=== PATIENT | male | born 1955 | race Caucasian/White ===

== ENCOUNTER 2017-06-05 05:55 | Inpatient (IN) | payer OTHER ==
[~2017-06-05 05:55] MED LIST: Buffered Lidocaine 0.9% SYRIN* 5 ML/SYR SYRINGE INTRADERM ONE; Buffered Lidocaine 0.9% SYRIN* 5 ML/SYR SYRINGE ONE; Famotidine IV* 10 MG/ML 2 ML (20 mg) ONE; Morphine INJ* 2 MG/ML 1 ML SYRINGE IV PRN; PROCHLORPERAZINE INJ 5 MG/ML 2 ML VIAL IV PRN; ceFAZolin 2 GM in 100 MLS NS (*) BAG IVPB ONE; oxyCODONE/Acetamin 5/325 MG* TAB PO PRN
[2017-06-05] MEDS ORDERED: Famotidine IV* 10 MG/ML 2 ML (20 mg) IV ONE (06:00)
[2017-06-05] MEDS ORDERED: Bacitracin IV* 50,000 UNITS INJ ONE (07:04)
[2017-06-05] MEDS ORDERED: Midazolam* 1 MG/ML 5 ML VIAL (5 MG) ONE (07:04)
[2017-06-05] MEDS ORDERED: KETAMINE HCL* 50 MG/ML 10 ML VIAL ONE (07:04)
[2017-06-05] MEDS ORDERED: Thrombin 5,000 UNITS* 1 APPLIC KIT - topical use - TOPICAL ONE (07:04)
[2017-06-05] MEDS ORDERED: fentaNYL* 50 MCG/ML 5 ML VIAL (250 MCG VIAL) ONE (07:04)
[2017-06-05] MEDS ORDERED: Atracurium* 10 MG/ML 10 ML VIAL ONE (07:04)
[2017-06-05] MEDS ORDERED: Lidocaine 1.5% EPI 1:200,000* 30 ML SDV ONE (07:04)
[2017-06-05] MEDS ORDERED: fentaNYL* 50 MCG/ML 2 ML VIAL (100 MCG VIAL) ONE ×2 (10:01→11:01)
[2017-06-05] MEDS: fentaNYL* 50 MCG/ML 2 ML VIAL (100 MCG VIAL) IV PRN ×5 (10:02→11:02)
[2017-06-05] MEDS ORDERED: Ondansetron INJ* 2 MG/ML VIAL IV PRN (10:02)
[2017-06-05] MEDS ORDERED: Acetaminophen TAB* 325 MG PO PRN (10:02)
[2017-06-05] MEDS ORDERED: Docusate CAP* 100 MG PO PRN (10:02)
[2017-06-05] MEDS ORDERED: EPHEDrine (Pressors)* 50 MG/ML VIAL ONE (10:05)
[2017-06-05] MEDS ORDERED: Succinylcholine* 20 MG/ML 10 ML VIAL ONE (10:05)
[2017-06-05] MEDS ORDERED: Propofol* 10 MG/ML 20 ML BTL IV PUSH ONE (10:05)
[2017-06-05] MEDS ORDERED: Ondansetron INJ* 2 MG/ML VIAL ONE (10:05)
[2017-06-05] MEDS ORDERED: Metoprolol Tartrate IV* 1 MG/ML 5 ML VIAL ONE (10:05)
[2017-06-05] MEDS ORDERED: Lidocaine 2% PF * 5 ML VIAL ONE (10:05)
[2017-06-05] MEDS ORDERED: Neostigmine Methylsulfate* 2 MG/2 ML SYRINGE ONE (10:05)
[2017-06-05] MEDS ORDERED: Phenylephrine INJ* 10 MG/ML 1 ML VIAL (10 MG) ONE (10:05)
[2017-06-05] MEDS ORDERED: Glycopyrrolate IV* 0.2 MG/ML 1 ML VIAL ONE (10:05)
[2017-06-05] MEDS ORDERED: PROCHLORPERAZINE INJ 5 MG/ML 2 ML VIAL ONE (10:05)
[2017-06-05] MEDS ORDERED: HYDROcodone/ACETAMIN 5-325 MG* 1 TAB ONE (10:10)
[2017-06-05] MEDS: HYDROcodone/ACETAMIN 5-325 MG* 1 TAB PO PRN ×3 (10:13→20:55)
[2017-06-05] MEDS ORDERED: Morphine INJ* 4 MG/ML 1 ML SYRINGE IV PRN (10:18)
[2017-06-05] MEDS ORDERED: Dextrose 50% Syringe 50 ML* 25 GM/50 ML SYRINGE IV PUSH PRN (11:05)
[2017-06-05] MEDS: Insulin LISPRO* 1 UNITS UNIT SUBCUT SCH ×3 (13:35→21:01)
[2017-06-05] MEDS: Pregabalin CAP(*) 100 MG PO SCH ×2 (15:10→20:54)
--- NOTE | 2017-06-05 15:59 | CONS ---
CONSULTATION REPORT: DATE OF CONSULT: 06/05/17. PRIMARY CARE PROVIDER: Dr. Klein. HEALTH CARE PROXY: His . CODE STATUS: Full. SERVICE REQUESTING CONSULTATION: Neurosurgery. REASON FOR CONSULTATION: Medical comanagement. SOURCE OF INFORMATION: History obtained, review of past medical records, and discussion with the patient. RELIABILITY: Good. HISTORY OF PRESENT ILLNESS: This is a 62-year-old male with past medical history of hypertension, hyperlipidemia, diabetes, obstructive sleep apnea, currently noncompliant with his CPAP, status post posterior cervical decompression C3 through C7 for spondylosis with myelopathy without complications. Patient was seen in the PACU, was awake and interactive; however , notes he feels like, "I am on joe," with 5/10 neck pain that he reports is controlled. He is generally in good health, however has had increasing bilateral arm and leg numbness for which he opted to proceed with surgery with Dr. Moore today. He does note that the right hand numbness seems immediately improved status post procedure. No other complaints including absence of chest pain, shortness of breath, nausea, vomiting, lightheadedness, or other pain than at the surgical site. PAST MEDICAL HISTORY: Includes: 1. Hyperlipidemia. 2. Type 2 diabetes. 3. Hypertension. 4. GERD. 5. Carpal tunnel syndrome. 6. Prostate cancer, status post radiation in 2012. 7. Peripheral neuropathy. 8. CAD, status post [place] in 1992, and again in 2003, status post 3 stents placed at [facility]. 9. Obstructive sleep apnea, intermittently using CPAP, reported carotid occlusion per chart review, although not confirmed by patient. MEDICATIONS: 1. Lopid 600 mg daily. 2. Lasix 20 mg daily. 3. Clopidogrel 75 mg daily. 4. Lyrica 100 mg 3 times daily. 5. Metoprolol succinate 100 mg daily. 6. Metformin 1000 mg twice daily. 7. Mesalamine 1.2 g daily. 8. Glipizide XL 5 mg daily. 9. Diovan 160/12.5 mg daily. 10. Januvia 100 mg daily. 11. Crestor 20 mg in the evening. 12. Bydureon 2 mg subcutaneously weekly, last administered yesterday. 13. Aspirin 81 mg daily. ALLERGIES: No known drug allergies. FAMILY HISTORY: Significant for father with diabetes and CAD at age 42. Mother with type 2 diabetes. SOCIAL HISTORY: Minimal tobacco in form of cigars, keeps "flies away," _while__ ___ fishing, actively employed. Minimal alcohol. REVIEW OF SYSTEMS: As per HPI, otherwise all other systems negative. PHYSICAL EXAM: Vitals in the PACU, 135/77, heart rate 84, T-max 97.7 postop, 96 % on 2 L nasal cannula. General: Obese, sitting up in bed, interactive, pleasant, in no apparent distress. HEENT: Oropharynx is clear. Moist mucous membranes. Sclerae anicteric. He has no elevated JVD and no carotid bruits. Cardiac: Regular rate and rhythm. No murmurs, rubs or gallops. Lungs: Clear to auscultation anteriorly. He has a drain in the cervical region, draining serosanguineous fluid. Abdomen: Soft, nontender, nondistended. Extremities: Warm and well perfused. He has trace lower extremity edema. He is alert and oriented x3. He notes mild peripheral numbness in his bilateral lower extremities, greatest at the feet. No anxiety, agitation or depression. LABORATORY DATA: Labs to review point of care glucose 143. ASSESSMENT AND PLAN: This is a 62-year-old man postop day 0, posterior cervical decompression. 1. Posterior cervical decompression, continue care per primary or surgical team. 2. Type 2 diabetes. Patient received Bydureon yesterday, next due next Sunday. As I am holding metformin, so repeat creatinine check tomorrow. Additionally holding long-acting glipizide and Januvia. Starting on high dose insulin sliding scale at Lispro with a.c. and h.s. Finger sticks, recommend restarting metformin at home dose tomorrow, if no change in kidney function. Recommend against sulfonylurea in the setting of insulin administration as well. Plan on discharging on home regimen if no changes to kidney function. 3. Hypertension. Continue metoprolol, hold Diovan, if blood pressure is elevated tomorrow, restart. Additionally he can restart this evening if blood pressure is elevated. 4. Obstructive sleep apnea, CPAP at home has been intermittently compliant, discussed at length with patient and he is willing to try this evening, ordered CPAP with hospital equipment. 5. History of CAD, continue aspirin, metoprolol as well as therapeutic interchange from Crestor to atorvastatin. 6. Diet, low sodium and diabetic. 7. DVT prophylaxis, SCDs per nurse and neurosurgical team. We will continue to follow. Thank you for this consultation. Please contact with additional questions or concerns. [id number]/[place] #: [id number] MAURO
[2017-06-05] MEDS: Atorvastatin* 40 MG TAB PO SCH (17:29)
[2017-06-05] MEDS: Metoprolol Succinate XL TAB* 100 MG PO SCH (20:54)
[2017-06-06] MEDS: HYDROcodone/ACETAMIN 5-325 MG* 1 TAB PO PRN ×6 (01:05→23:09)
[2017-06-06 05:37] LABS: BUN/Creatinine Ratio 12.9 (8-20); Calcium 9.2 mg/dL (8.6-10.3); EGFR Non-African American 114.3 (>60); Potassium 3.7 mmol/L (3.5-5.0)
[2017-06-06] MEDS: Pregabalin CAP(*) 100 MG PO SCH ×3 (08:22→20:59)
[2017-06-06] MEDS: Gemfibrozil TAB* 600 MG PO SCH (08:23)
[2017-06-06] MEDS: Furosemide TAB* 20 MG PO SCH (08:23)
[2017-06-06] MEDS: Insulin LISPRO* 1 UNITS UNIT SUBCUT SCH ×4 (08:57→20:59)
[2017-06-06] MEDS ORDERED: glipiZIDE TAB.XL* 5 MG PO SCH (09:00)
[2017-06-06] MEDS ORDERED: Aspirin EC Low Dose* 81 MG TAB.EC PO SCH ×2 (09:00→18:00)
[2017-06-06] MEDS ORDERED: Famotidine TAB* 20 MG PO SCH (10:00)
[2017-06-06] MEDS: Famotidine TAB* 20 MG PO SCH ×2 (10:07→20:59)
[2017-06-06] MEDS: metFORMIN* 1,000 MG TAB PO SCH ×2 (10:07→20:59)
--- NOTE | 2017-06-06 14:53 | PN ---
Subjective Date of Service: 06/06/17 Interval History: HOSPITALIST PROGRESS NOTE Patient seen and examined at bedside. He feels well today. Pain is controlled, still has some tingling sensation on his fingertips. Requesting to have CPAP tonight. States he "learned his lesson" as he refused CPAP last night and the hypoxia alarm woke him up multiple times during the night and he's now aware of how many hypoxic episodes he has. Plans to start using his own CPAP at home when discharged. Family History: Unchanged from Admission Social History: Unchanged from Admission Past Medical History: Unchanged from Admission Objective Active Medications: Acetaminophen (Tylenol Tab*) 650 mg PO Q4H PRN PRN Reason: Pain Or Temperature >101 F Hydrocodone Bitart/Acetaminophen ([place] 5-325 Tab*) 2 tab PO Q4H PRN PRN Reason: PAIN - MODERATE Last Admin: 06/06/17 14:35 Dose: 2 tab Aspirin (Aspirin Ec Low Dose*) 81 mg PO QPM COUNTS INCLUDE 234 BEDS AT THE [facility] Atorvastatin Calcium (Lipitor*) 40 mg PO QPM COUNTS INCLUDE 234 BEDS AT THE [facility] Last Admin: 06/05/17 17:29 Dose: 40 mg Dextrose (D50w Syringe 50 Ml*) 12.5 gm IV PUSH .FOR FS < 60 - SS PRN PRN Reason: FS < 60 Docusate Sodium (Colace Cap*) 100 mg PO BID PRN PRN Reason: CONSTIPATION Famotidine (Pepcid Tab*) 20 mg PO BID COUNTS INCLUDE 234 BEDS AT THE [facility] Last Admin: 06/06/17 10:07 Dose: 20 mg Furosemide (Lasix Tab*) 20 mg PO DAILY COUNTS INCLUDE 234 BEDS AT THE [facility] Last Admin: 06/06/17 08:23 Dose: 20 mg Gemfibrozil (Lopid Tab*) 600 mg PO DAILY COUNTS INCLUDE 234 BEDS AT THE [facility] Last Admin: 06/06/17 08:23 Dose: 600 mg Lactated Ringer's (Lactated Ringers 1000 Ml Bag*) 1,000 mls @ 75 mls/hr IV .per rate COUNTS INCLUDE 234 BEDS AT THE [facility] Last Admin: 06/05/17 12:39 Dose: 75 mls/hr Insulin Human Lispro (Humalog*) 0 units SUBCUT ACHS COUNTS INCLUDE 234 BEDS AT THE [facility] PRN Reason: Protocol Last Admin: 06/06/17 12:50 Dose: 2 units Metformin HCl (Glucophage*) 1,000 mg PO BID COUNTS INCLUDE 234 BEDS AT THE [facility] Last Admin: 06/06/17 10:07 Dose: 1,000 mg Metoprolol Succinate (Toprol Xl Tab*) 100 mg PO 2100 COUNTS INCLUDE 234 BEDS AT THE [facility] Last Admin: 06/05/17 20:54 Dose: 100 mg Morphine Sulfate (Morphine Inj (Syringe)*) 4 mg IV Q4H PRN PRN Reason: PAIN Ondansetron HCl (Zofran Inj*) 4 mg IV Q4H PRN PRN Reason: NAUSEA/VOMITING Last Admin: 06/05/17 13:06 Dose: 4 mg Pregabalin (Lyrica Cap(*)) 100 mg PO TID COUNTS INCLUDE 234 BEDS AT THE [facility] Last Admin: 06/06/17 14:36 Dose: 100 mg Tamsulosin HCl (Flomax Cap*) 0.4 mg PO BEDTIME COUNTS INCLUDE 234 BEDS AT THE [facility] Vital Signs 06/06/17 06/06/17 06/06/17 10:22 10:28 11:16 Temperature 98.3 F Pulse Rate 88 Respiratory 18 18 16 Rate Blood Pressure 124/64 (mmHg) O2 Sat by Pulse 96 Oximetry Oxygen Devices in Use Now: None Appearance: Pleasant obese gentleman sitting up in bed in [facility]. Eyes: No Scleral Icterus Ears/Nose/Mouth/Throat: Mucous Membranes Moist Neck: Trachea Midline Respiratory: Symmetrical Chest Expansion and Respiratory Effort, Clear to Auscultation Cardiovascular: RRR - Normal S1 and S2 Abdominal: NL Sounds; No Tenderness; No Distention Neurological: Alert and Oriented x 3, NL Muscle Strength and Tone Lines/Tubes/Other Access: Clean, Dry and Intact Peripheral IV Nutrition: Taking PO's Result Diagrams: 06/06/17 04:45 Assess/Plan/Problems-Billing Assessment: Mr. Henning is a 62 yo M with HLD, type 2 DM, HTN, GERD, ENID, CAD, admitted for elective posterior cervical decompression C3-C7. Hospitalist service consulted for management of comorbidities. - Patient Problems (1) H/O excision of lamina of cervical vertebra for decompression of spinal cord Comment: - Management as per Neurosurgery. (2) Type 2 diabetes mellitus Comment: - Controlled. - Continue Lispro SS and add Metformin. - Januvia and Glipizide still on hold. (3) HTN (hypertension) Comment: - Controlled. - Continue Metoprolol. - ARB and HCTZ on hold for now - will resume when BP trends up. (4) ENID (obstructive sleep apnea) Comment: - Patient requests to have CPAP on tonight and is planning to use his own when he returns home. (5) CAD (coronary artery disease) Comment: - Stable. - Continue Aspirin, Metoprolol, and statin. - Clopidogrel on hold - resume when cleared by Neurosurgery. (6) DVT prophylaxis Comment: - SCDs as per Neurosurgery. (7) Full code status Status and Disposition: Hospitalist service will continue to follow.
[2017-06-06] MEDS: Atorvastatin* 40 MG TAB PO SCH (17:31)
[2017-06-06] MEDS: Metoprolol Succinate XL TAB* 100 MG PO SCH (20:59)
[2017-06-06] MEDS ORDERED: Tamsulosin CAP* 0.4 MG PO SCH (21:00)
[2017-06-07] MEDS: HYDROcodone/ACETAMIN 5-325 MG* 1 TAB PO PRN ×2 (06:53→10:53)
[2017-06-07] MEDS: Pregabalin CAP(*) 100 MG PO SCH ×2 (09:09→14:15)
[2017-06-07] MEDS: metFORMIN* 1,000 MG TAB PO SCH (09:09)
[2017-06-07] MEDS: Gemfibrozil TAB* 600 MG PO SCH (09:09)
[2017-06-07] MEDS: Famotidine TAB* 20 MG PO SCH (09:09)
[2017-06-07] MEDS: Furosemide TAB* 20 MG PO SCH (09:10)
[2017-06-07] MEDS: Insulin LISPRO* 1 UNITS UNIT SUBCUT SCH ×2 (09:10→12:31)
--- NOTE | 2017-06-07 09:48 | PN ---
Subjective Date of Service: 06/07/17 Interval History: HOSPITALIST PROGRESS NOTE Patient seen and examined at bedside. He offers no new complaints today. Feels sore, but denies severe pain. Slept better with CPAP. Family History: Unchanged from Admission Social History: Unchanged from Admission Past Medical History: Unchanged from Admission Objective Active Medications: Acetaminophen (Tylenol Tab*) 650 mg PO Q4H PRN PRN Reason: Pain Or Temperature >101 F Hydrocodone Bitart/Acetaminophen ([place] 5-325 Tab*) 2 tab PO Q4H PRN PRN Reason: PAIN - MODERATE Last Admin: 06/07/17 06:53 Dose: 2 tab Aspirin (Aspirin Ec Low Dose*) 81 mg PO QPM [facility] Last Admin: 06/06/17 17:31 Dose: 81 mg Atorvastatin Calcium (Lipitor*) 40 mg PO QPM [facility] Last Admin: 06/06/17 17:31 Dose: 40 mg Dextrose (D50w Syringe 50 Ml*) 12.5 gm IV PUSH .FOR FS < 60 - SS PRN PRN Reason: FS < 60 Docusate Sodium (Colace Cap*) 100 mg PO BID PRN PRN Reason: CONSTIPATION Last Admin: 06/07/17 09:09 Dose: 100 mg Famotidine (Pepcid Tab*) 20 mg PO BID [facility] Last Admin: 06/07/17 09:09 Dose: 20 mg Furosemide (Lasix Tab*) 20 mg PO DAILY [facility] Last Admin: 06/07/17 09:10 Dose: 20 mg Gemfibrozil (Lopid Tab*) 600 mg PO DAILY [facility] Last Admin: 06/07/17 09:09 Dose: 600 mg Lactated Ringer's (Lactated Ringers 1000 Ml Bag*) 1,000 mls @ 75 mls/hr IV .per rate [facility] Last Admin: 06/05/17 12:39 Dose: 75 mls/hr Insulin Human Lispro (Humalog*) 0 units SUBCUT ACHS [facility] PRN Reason: Protocol Last Admin: 06/07/17 09:10 Dose: 3 units Metformin HCl (Glucophage*) 1,000 mg PO BID [facility] Last Admin: 06/07/17 09:09 Dose: 1,000 mg Metoprolol Succinate (Toprol Xl Tab*) 100 mg PO 2100 [facility] Last Admin: 06/06/17 20:59 Dose: 100 mg Morphine Sulfate (Morphine Inj (Syringe)*) 4 mg IV Q4H PRN PRN Reason: PAIN Ondansetron HCl (Zofran Inj*) 4 mg IV Q4H PRN PRN Reason: NAUSEA/VOMITING Last Admin: 06/05/17 13:06 Dose: 4 mg Pregabalin (Lyrica Cap(*)) 100 mg PO TID [facility] Last Admin: 06/07/17 09:09 Dose: 100 mg Tamsulosin HCl (Flomax Cap*) 0.4 mg PO BEDTIME [facility] Last Admin: 06/06/17 20:59 Dose: 0.4 mg Vital Signs 06/07/17 06/07/17 06/07/17 06:53 07:31 08:00 Temperature 97.9 F Pulse Rate 88 Respiratory 18 11 18 Rate Blood Pressure 131/65 (mmHg) O2 Sat by Pulse 100 100 Oximetry Oxygen Devices in Use Now: None Appearance: Pleasant gentleman sitting up in bed in [facility]. Eyes: No Scleral Icterus Ears/Nose/Mouth/Throat: Mucous Membranes Moist Neck: Trachea Midline Respiratory: Symmetrical Chest Expansion and Respiratory Effort, Clear to Auscultation Cardiovascular: RRR - Normal S1 and S2 Neurological: Alert and Oriented x 3, NL Muscle Strength and Tone Lines/Tubes/Other Access: Clean, Dry and Intact Peripheral IV Nutrition: Taking PO's Result Diagrams: 06/06/17 04:45 Assess/Plan/Problems-Billing Assessment: Mr. Henning is a 62 yo M with HLD, type 2 DM, HTN, GERD, ENID, CAD, admitted for elective posterior cervical decompression C3-C7. Hospitalist service consulted for management of comorbidities. - Patient Problems (1) H/O excision of lamina of cervical vertebra for decompression of spinal cord Comment: - Management as per Neurosurgery. (2) Type 2 diabetes mellitus Comment: - Controlled. - Continue Lispro SS and Metformin. - Resume Januvia and Glipizide on discharge. (3) HTN (hypertension) Comment: - Trending up. - Continue Metoprolol and resume Valsartan/HCTZ. (4) ENID (obstructive sleep apnea) Comment: - Advised to f/u with his Tourist Agent in [place] to review his CPAP settings as outpatient. (5) CAD (coronary artery disease) Comment: - Stable. - Continue Aspirin, Metoprolol, and statin. - Resume Clopidogrel when cleared by Neurosurgery. (6) DVT prophylaxis Comment: - SCDs as per Neurosurgery. (7) Full code status Status and Disposition: Hospitalist service will sign off. Please don't hesitate to call with questions.
[2017-06-07 11:48] VITALS: BP 138/66
--- NOTE | 2017-06-07 13:22 | PN ---
Progress Note - Progress Note Date of Service: 06/07/17 SOAP: Subjective: [This is a 62 year old male s/p posterior cervical decompression C3-7, POD #2. He complains of posterior neck soreness and pain at the incision site. Pre- operative upper extremity symptoms are improving; mild tingling in bilateral hands persists. He is ambulating independently. He is not having difficulty eating. Denies headache. Pain is controlled with oral pain medication. ] Objective: [ Vital Signs: Temp Pulse Resp BP Pulse Ox 97.5 F 87 18 138/66 100 06/07/17 11:22 06/07/17 11:22 06/07/17 12:35 06/07/17 11:22 06/07/17 11:22 General: Alert and oriented. Sitting on bedside eating lunch. No distress. Neuro: Motor and sensory intact. Incision: Incision to posterior neck is intact with kaylene. No swelling or infection. KYLE drain removed today without complication. Dressing replaced. Extremities: Full ROM. Wound drain output 06/05/17 06/05/17 06/05/17 11:15 14:00 16:31 Output, KYLE #1 50 40 30 06/05/17 06/06/17 06/06/17 19:46 03:32 14:00 Output, KYLE #1 25 40 20 06/07/17 06/07/17 05:37 09:41 Output, KYLE #1 20 13 ] Assessment: [Satisfactory post-op course. Pain is well controlled with PO pain medications. ] Plan: [1 Discharge home today, 2. Discharge instructions were discussed with the patient. 3. Restart plavix on 06/10/17.]
[2017-06-07] MEDS ORDERED: Valsartan TAB* 160 MG PO SCH (18:00)
[2017-06-07] MEDS ORDERED: Hydrochlorothiazide TAB* 25 MG PO SCH (18:00)
--- NOTE | 2017-06-09 02:34 | DS ---
DISCHARGE SUMMARY: DATE OF ADMISSION: 06/05/17 DATE OF DISCHARGE: 06/07/17 ATTENDING PHYSICIAN: Dr. Moore * (DICTATED BY JESSICA MCDANIEL) DISCHARGE DIAGNOSES: 1. Cervical spondylosis with myelopathy. 2. Diabetes. 3. Hyperlipidemia. 4. Hypertension. 5. Coronary artery disease. 6. Obstructive sleep apnea. SPECIAL PROCEDURE: Posterior cervical decompression C3 through C7. HOSPITAL COURSE: This 62-year-old male was seen in office with cervical myelopathy consistent with MRI findings of cervical spondylosis. He had failed to improve over several months of conservative treatment and was admitted at this time for elective surgery. On the day of admission, he was taken to surgery where under general anesthesia, a posterior cervical decompression at C3 through C7 operation was carried out. Postoperatively, he was feeling well. Hospital Medicine was consulted for comanagement of medical conditions. On the second postoperative day, the KYLE wound drain was discontinued and the patient was discharged home to the care of his family. At this time, he is ambulating independently. He is eating, drinking, and voiding without difficulty. He complained of posterior neck soreness and moderate pain that was well controlled with oral pain medications. DISCHARGE INSTRUCTIONS: Activity level and wound care were discussed with the patient and information was provided. FOLLOWUP: He will be seen in approximately 2 weeks for followup and staple removal. DISCHARGE MEDICATIONS: [place] 5/325 mg 2 tabs by mouth every 4 hours as needed for pain. JESSICA MCDANIEL [id number]/[facility] #: [id number] [facility] CENTERFrancesca
--- NOTE | 2017-06-10 02:21 | OP ---
OPERATIVE REPORT: DATE OF OPERATION: 06/05/17 DATE OF : 55 PRIMARY SURGEON: Maikel Moore MD ANESTHESIA: General. PRE-OP DIAGNOSIS: Cervical spondylosis with myelopathy. POST-OP DIAGNOSIS: Cervical spondylosis with myelopathy. OPERATIVE PROCEDURE: Posterior cervical decompressive laminectomy C3-C7. DESCRIPTION OF PROCEDURE: After satisfactory general anesthesia was obtained, the patient was caref ully placed into the sitting position utilizing the Martinez headrest for head support. The posteri or cervical region was clipped, prepped and draped in a sterile manner for posterior cervical lali ctomy and a skin incision outlined from C2 down to C7. This incision was infiltrated with 1% Xyloca ine with epinephrine, after which it was turned down sharply to the level of the cervical fascia. T he fascia was divided along the spinous processes from C2 to C7 and the paraspinal musculature strip ped away from these posterior elements using the periosteal elevator and monopolar cautery. The C3 spinous process was identified by palpating the prominent C2 spinous process and moving to the next one down. Spinous processes of C3, C4, C5, and C6 were then removed with Leksell rongeur. The decomp ression was began at the C3-4 level where the inferior aspect of the C3 lamina and base of the remai corazon spinous process was thinned out with a Midas Mu drill. A decompression was then carried out w ith the Kerrison until the posterior elements of C3 had been removed. The decompression was carried out laterally to the facet complexes which were left intact. The decompression was then carried do wn inferiorly until the posterior elements of the C4, C5, and C6 were removed as well as the more [place] perior aspect of C7. Hemostasis was obtained with temporary Gelfoam after which the wound was thoro ughly irrigated. A drain was placed in the epidural space and tunneled out toward the left side. T he fascia was then reapproximated with 0 Vicryl sutures with #1 Prolene sutures added for reinforcem ent. The subcutaneous tissues were then reapproximated with 3-0 Vicryl and the skin closed with ski n clips. The estimated blood loss was 100 cc and the final sponge, padding, and needle counts were correct. The patient was taken to the recovery room, extubated, and in stable condition. [id number]/[facility] #: [id number]
== END 2017-06-07 14:35 | disposition home or self-care (01) | DRG 310 ==
LOC: OR 05:55 → SSU 07:33 → OBSVTOIN 06-06 07:33
PROVIDERS: ADMIT Neurological Surgery; ATTEND Neurological Surgery
PROC: 00NW0ZZ Release Cervical Spinal Cord, Open Approach (ICD-10-PCS; principal; 2017-06-05 07:45)
PROC: 5A09357 Assistance with Respiratory Ventilation, Less than 24 Consecutive Hours, Continuous Positive Airway Pressure (ICD-10-PCS; 2017-06-07)
DX: M47.12 Other spondylosis with myelopathy, cervical region (principal); E11.42 Type 2 diabetes mellitus with diabetic polyneuropathy; I10 Essential (primary) hypertension; E78.5 Hyperlipidemia, unspecified; K21.9 Gastro-esophageal reflux disease without esophagitis; G47.33 Obstructive sleep apnea (adult) (pediatric); I25.10 Atherosclerotic heart disease of native coronary artery without angina pectoris; E66.9 Obesity, unspecified; Z95.5 Presence of coronary angioplasty implant and graft; I25.2 Old myocardial infarction; Z82.49 Family history of ischemic heart disease and other diseases of the circulatory system; Z83.3 Family history of diabetes mellitus; Z87.891 Personal history of nicotine dependence; Z68.37 Body mass index [BMI] 37.0-37.9, adult; Z91.19 Patient's noncompliance with other medical treatment and regimen; Z85.46 Personal history of malignant neoplasm of prostate; Z92.3 Personal history of irradiation
CPT/HCPCS: 36415; 80048; 94660; 94760; A9270-GY; G0378; J0330; J0780; J2250; J2405; J2704; J3010